=== PATIENT | female | born 1955 ===

== ENCOUNTER 2023-06-05 11:21 | Emergency (ER) | payer MEDICARE, MEDICAID, SELFPAY ==
[2023-06-05 12:15] VITALS: BP 165/131; PULSE 89; RESP 17; TEMP 36.3; O2SAT 97; BMI 23.1
--- NOTE | 2023-06-05 12:19 | ED_ITS ---
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 Pt states that she tripped and struck her posterior head on a wooden doorway. No LOC. She reports that she is asymptomatic and is feeling well but given her hx of cerebral anneurysm 30 years ago she wanted to be medically evaluated. No headaches, dizziness, visual changes, chest pain, SOB, nausea, vomiting or diarrhea. She is not on AC. No other complaints or concerns at this time. MD Complaint: head injury Mechanism of Injury: fall Place: home Loss of Consciousness: no Location of injury: occipital Radiation: none Other Injuries: none Associated symptoms: denies other symptoms Related Data Allergies Allergy/AdvReac Type Severity Reaction Status Date / Time No Known Allergies Allergy Verified 06/05/23 12:26 Review of Systems Review of Systems: Yes all other systems are reviewed and are negative Constitutional: Constitutional: Reports as per [facility] Past Medical History Attestation statement: The following information was validated with the patient. Social History Social History Advance Directives: No Advance Directives Information Provided: No Physical Exam Vital Signs: Vital Signs: Last Vital Signs Temp 97.4 F 06/05/23 12:15 Pulse 98 06/05/23 16:25 Resp 16 06/05/23 16:25 BP 184/88 H 06/05/23 16:25 Pulse Ox 98 06/05/23 16:25 O2 Del Method Room Air 06/05/23 12:15 BMI result Body Mass Index 23.1 Const: General: cooperative, comfortable and no acute distress Orientation/consciousness: patient oriented x3 Limitations: no limitations HEENT: Head: Yes normal to inspection, Yes No palpable skull fracture present, Yes normocephalic and Yes atraumatic Ears: hearing grossly normal bilaterally and TM's normal bilaterally (no hemotypanum ) General nose exam: Normal external nose present Face and sinus: Yes normal facial exam Mouth: Normal oral and palatal mucosa present, oropharynx normal and moist mucous membranes Throat: Yes posterior oropharynx normal Eyes: General: appearance normal, both eyes and all related structures Eyelids: Yes eyelids normal Conjunctivae: conjunctivae normal Sclerae: sclerae normal Pupils: Equal, round and reactive pupils present and Other pupil findings (R pupil dilated and nonreactive, (chronic), L eye reactive ) EOM: EOMs intact bilaterally Neck: Neck: Yes normal visual inspection, Yes full ROM and Yes no lymphadenopathy Lymphatic: no lymphadenopathy noted Chest: Chest palpation & inspection: normal inspection of the chest Resp: Effort & Inspection: normal respiratory effort and able to speak in c omplete sentences Auscultation: clear to auscultation bilaterally, no crackles, no rales, no rhonchi and no wheezes Cardio: Rate: regular rate Rhythm: regular rhythm Heart sounds: S1 normal heart sound present and S2 normal heart sound present GI: Inspection: Yes normal to inspection Back/Spine/Pelvis: Other: No midline cervical spine tenderness to palpation. Skin: General skin exam: no rashes or lesions noted Trauma: no lacerations or abrasions Wounds: no wounds Neuro: General: patient oriented x3 and moves all extremities Cranial nerves: Yes Equal, round and reactive pupils present Extrem: General: Yes normal to inspection Right upper extremity: normal to inspection Left upper extremity: normal to inspection Right lower extremity: normal to inspection Left lower extremity: normal to inspection Course Course Course Narrative: This is an RME: Additional HPI, ROS, PE not included below will be deferred to primary provider. This is a [id number]-female, with a hx of cerebral aneursym with surgical clips (20-30 years ago), HTN, 3 stents placement in abdominal aneurysms in [facility] presenting to the ER with complaints of head injury which occurred today. Pt states that she tripped and struck her posterior head on a wooden doorway. No LOC. BP elevated at 165/131. Did not take her HTN. Patient has dilated pupil on the right which is chronic for her, left pupil reactive, she had this operated on. Plan: CT head. Medical Decision Making Medical Decision Making MDM Narrative: 67 y/o F presenting to the ER with complaints of head strike which occurred after mechanical fall today. On arrival, labs WNL. Pt with mild TTP over right occiput without hematoma, laceration or abrasion. No bony step off. No LOC. Pt fully neurologically intact. CT head was obtained which was unremarkable. Given pt is asymptomatic, fully neurologically intact, and negative CT head, pt stable for d/c, given strict return precautions. Pt stable for d/c. Differential Diagnosis Differential Diagnoses: The differential diagnosis associated with the presentation includes closed head injury, ICH, laceration, skull fracture Admission/Observation Consideration of admission/observation: Escalation of care including admission/observation considered Patient would have been admitted to the hospital had her work up had any findings where hospital admission was appropriate and her clinical presentation warranted hospital admission. Lab Data MDM Lab Attestation statement: I reviewed the patient's lab results. Radiology Impression Discussion of test interpretation with radiology: I have reviewed the radiologist's reading. Discharge Plan Discharge Clinical Impression: Closed head injury Qualifiers: Encounter type: initial encounter Qualified Code(s): S09.90XA - Unspecified injury of head, initial encounter Patient Disposition: Home, Self-Care Instructions: Head Injury (ED) Additional Instructions: Your seen in the emergency department today for a head injury. We obtained a CT scan of your head which did not show any abnormalities. Please rest for the next couple of days. You may ice the back of your head for relief. If any new or worsening symptoms occur including but not limited to headaches, dizziness, changes in her vision, weakness, chest pain or shortness of breath or any other symptoms please return for re-evaluation. Please follow-up with your primary care physician regarding this visit. Interventions: ED Discharge Assessment Last Done: 06/05/23 16:45 Discharge Date/Time: 06/05/23 16:46
[2023-06-05 16:25] VITALS: BP 184/88; PULSE 98; RESP 16; O2SAT 98
== END 2023-06-05 16:46 | disposition home or self-care (01) ==
PROVIDERS: Emergency Provider Emergency Medicine Emergency Medical Services
DX: S09.90XA Unspecified injury of head, initial encounter (principal); R51.9 Headache, unspecified; W01.10XA Fall on same level from slipping, tripping and stumbling with subsequent striking against unspecified object, initial encounter; Y93.9 Activity, unspecified; Y92.9 Unspecified place or not applicable; Y99.9 Unspecified external cause status
CPT/HCPCS: 70450; 99283; 99284

== ENCOUNTER 2023-06-06 09:53 | Emergency (ER) | payer MEDICARE, MEDICAID, SELFPAY ==
[2023-06-06 09:59] VITALS: BP 153/70; PULSE 88; RESP 19; TEMP 36.6; O2SAT 98; BMI 21.4
--- NOTE | 2023-06-06 10:03 | ED.GENADULT ---
HPI - General Adult General Chief complaint: General Medical Stated complaint: Needs HBP Medication Time Seen by Provider: 06/06/23 10:02 Source: patient Mode of arrival: ambulatory Limitations: no limitations History of Present Illness HPI narrative: Year old female with history of hypertension presenting to the ER for refill of her anti-hypertensive medication. She states she is here visiting from [place]. She was unable to get a hold of her PCP. She ran for BP med today. She is looking for refill for 1 week until she can get home and get refills from her doctor. She denies any chest pain, shortness of breath, headaches, vision changes. Blood pressure on arrival was 150 systolic. MD complaint: Blood pressure medication refill Associated symptoms: denies other symptoms Treatments prior to arrival: none Related Data Previous Rx's Medication Instructions Recorded valsartan 80 1 tab PO DAILY #7 tabs 06/06/23 mg-hydrochlorothiazide 12.5 mg tablet Allergies Allergy/AdvReac Type Severity Reaction Status Date / Time No Known Allergies Allergy Verified 06/06/23 09:58 Review of Systems Review of Systems: Yes all other systems are reviewed and are negative [facility] Social History Social History Advance Directives: No Physical Exam ED Vital Signs: Vital Signs - 24 hr 06/06/23 09:59 Temperature 98 F Pulse Rate 88 Respiratory Rate 19 Blood Pressure 153/70 H Pulse Oximetry 98 Oxygen Delivery Method Room Air BMI result Body Mass Index 21.4 Appearance: Alert. Oriented X3. No acute distress. HEENT: normal inspection CVS: Normal heart rate and rhythm. Pulses normal. Respiratory: No respiratory distress. Lungs CTAB Skin: Skin warm and dry. Normal skin color. Normal skin turgor. No rashes. Extremities: normal inspection x4, no joint swelling Neuro: Oriented X 3. grossly normal, nonfocal, steady gait Medical Decision Making Medical Decision Making MDM Narrative: 67-year-old female with history of hypertension presents to the ER for evaluation and refill of her antihypertensive medication. She is on valsartan/ hydrochlorothiazide. She has been compliant. She denies any signs or symptoms of hypertensive urgency. She feels well. Blood pressure today 153/70. She offers no physical complaints. Will refill her valsartan 80/12.5 x1 week and have her follow-up with her PCP for further refills. Patient agrees with plan all questions were answered Differential Diagnosis Differential Diagnoses: The differential diagnosis associated with the presentation includes medication noncompliance, hypertensive urgency, essential hypertension Prescription Management I considered prescription management with: Other ( antihypertensive) Chronic Conditions Patient?s care impacted by: Hypertension Critical Care Time Critical Care Time Critical Care Time: No Discharge Plan Discharge Clinical Impression: Hypertension Qualifiers: Hypertension type: unspecified Qualified Code(s): I10 - Essential (primary) hypertension Patient Disposition: Home, Self-Care Instructions: Hypertension (ED) Additional Instructions: Take your blood pressure medication as prescribed follow up with your PCP for additional re-fills If you develop new or worsening symptoms call 911 or come back to the ER for further evaluation. Prescriptions: New valsartan-hydrochlorothiazide 80-12.5 mg tablet 1 tab PO DAILY Qty: 7 0RF Interventions: ED Discharge Assessment Last Done: 06/06/23 10:13 Discharge Date/Time: 06/06/23 10:14
== END 2023-06-06 10:14 | disposition home or self-care (01) ==
PROVIDERS: Emergency Provider Emergency Medicine Emergency Medical Services
DX: I10 Essential (primary) hypertension (principal); Z76.0 Encounter for issue of repeat prescription
CPT/HCPCS: 99282; 99283